=== PATIENT | female | born 1960 | race Hispanic/Latino ===

== ENCOUNTER → 2017-11-26 | Outpatient (CLI) | payer MEDICARE, MEDICAID ==
--- NOTE | 2017-11-26 16:09 | Diagnostic Imaging Report ---
EXAM: Renal Ultrasound INDICATION: \S\CYST OF KIDNEY COMPARISON: Renal ultrasound dated 01/15/2017 TECHNIQUE: Transverse and longitudinal images of the kidneys and bladder were obtained. FINDINGS: Right Kidney: Size: 10.8 cm Echogenicity: Normal Parenchymal thickness: Normal Collecting system: No hydronephrosis Stones: None Cyst/Mass: None Left Kidney: Size: 11.2 cm Echogenicity: Normal Parenchymal thickness: Normal Collecting system: No hydronephrosis Stones: None Cyst/Mass: 1.1 x 1.3 x 1 cm inferior pole cyst, previously 1.7 x 1.4 x 1.5 cm. Bladder: Unremarkable. IMPRESSION: Unremarkable renal ultrasound exam. 1.3 cm left inferior pole renal cyst, previously 1.7 cm. Signed by: Dr. Onel Dennis MD on 11/26/2017 4:06 PM
== END ==
LOC: US 13:52
PROVIDERS: ATTEND Urology
DX: N28.1 Cyst of kidney, acquired (principal)
CPT/HCPCS: 76770

== ENCOUNTER → 2018-11-21 | Outpatient (CLI) | payer MEDICARE ==
--- NOTE | 2018-11-21 11:33 | Diagnostic Imaging Report ---
EXAM: Renal Ultrasound INDICATION: ^[id number] ^[id number] ^CYST OF KIDNEY COMPARISON: None TECHNIQUE: Transverse and longitudinal images of the kidneys and bladder were obtained. FINDINGS: Right Kidney: Length: 10.5 cm Appearance: Normal echogenicity. Collecting system: No hydronephrosis Stones: None Cyst/Mass: None Left Kidney: Length: 10.4 cm Appearance: Normal echogenicity. Collecting system: No hydronephrosis Stones: None Cyst/Mass: Lower pole 1.9 x 1.4 x 1.5 cm anechoic simple cyst. Bladder: No mass or calculi. Bilateral ureteral jets seen. Prevoid volume estimate of 79 cc. IMPRESSION: No hydronephrosis or renal calculi. Left lower pole simple cyst. Signed by: Di Mejia MD on 11/21/2018 11:29 AM
== END ==
LOC: US 09:11
PROVIDERS: ATTEND Urology
DX: N28.1 Cyst of kidney, acquired (principal)
CPT/HCPCS: 76770

== ENCOUNTER → 2022-07-12 | Outpatient (CLI) | payer MEDICARE | LOC: US 16:15 | PROVIDERS: ATTEND Urology | DX: Z09 Encounter for follow-up examination after completed treatment for conditions other than malignant neoplasm (principal); N28.1 Cyst of kidney, acquired | CPT/HCPCS: 76770 ==